=== PATIENT | male | born 1975 | race African-American/Black ===

== ENCOUNTER 2017-08-07 02:47 | Emergency (ER) | payer MEDICAID, OTHER ==
[~2017-08-07] VITALS: Ht 188 cm; Wt 104.5 kg
[2017-08-07] MEDS ORDERED: IBUPROFEN 600 MG TABLET PO ONE (03:00)
[2017-08-07] MEDS ORDERED: ALBU8.5H8 IH (03:13)
[2017-08-07] MEDS ORDERED: ALBUTEROL SULFATE 2.5 MG/0.5 ML NEB SOLUTION NEB ONE (03:39)
[2017-08-07 03:48] LABS: INFLUENZA TYPE A NEGATIVE FOR TYPE A (NEGATIVE); INFLUENZA TYPE B NEGATIVE FOR TYPE B (NEGATIVE)
[2017-08-07] MEDS ORDERED: 0.9% SODIUM CHLORIDE 5 ML NEB SOLUTION NEB ONE (03:49)
[2017-08-07 04:33] LABS: BASOPHILS # (AUTO) 0.02 K/uL (0.00-0.20); BASOPHILS % (AUTO) 0.3 % (0.0-2.0); EOSINOPHILS # (AUTO) 0.01 K/uL (0.00-0.70); EOSINOPHILS % (AUTO) 0.11 % (1.0-6.0); HEMATOCRIT 41.8 % (41-53); HEMOGLOBIN 14.1 g/dL (13.5-17.5); LYMPHOCYTES # (AUTO) 2.3 K/uL (1.0-4.8); LYMPHOCYTES % (AUTO) 29.1 % (22.0-44.0); MEAN CORPUSCULAR HEMOGLOBIN 32.8 pg (26.0-34.0); MEAN CORPUSCULAR HGB CONC 33.7 G/dL (31.0-37.0); MEAN CORPUSCULAR VOLUME 97 fL (80-100); MONOCYTES # (AUTO) 0.6 K/uL (0.1-1.0); MONOCYTES % (AUTO) 7.5 % (2.0-9.0); NEUTROPHILS # (AUTO) 4.9 K/uL (1.8-7.7); PLATELET COUNT (AUTO) 137 K/uL (150-450); RED CELL DISTRIBUTION WIDTH 13.2 % (11.5-14.5)
[2017-08-07 04:46] LABS: ALANINE AMINOTRANSFERASE 30 U/L (12-78); ALBUMIN 3.3 g/dL (3.4-5.0); ALKALINE PHOSPHATASE 63 U/L (46-116); ANION GAP 8 mmol/L (8-16); ASPARTATE AMINOTRANSFERASE 32 U/L (15-37); BILIRUBIN,TOTAL 0.4 mg/dL (0.1-1.0); CALCIUM, TOTAL 7.6 mg/dL (8.8-10.5); CARBON DIOXIDE 27 mmol/L (22-29); CHLORIDE 99 mmol/L (98-107); CREATININE 1.35 mg/dL (0.60-1.30); GLOMERULAR FILTR. RATE CALC > 60 mL/min (>60); GLUCOSE,RANDOM 129 mg/dL (70-110); SODIUM SERUM 134 mmol/L (136-145); UREA NITROGEN, BLOOD 10 mg/dL (7-18)
[2017-08-07 04:49] LABS: POTASSIUM 2.8 mmol/L (3.5-5.1)
[2017-08-07] MEDS ORDERED: POTASSIUM CHLORIDE 20 MEQ ER TABLET PO ONE (05:00)
[2017-08-07] MEDS ORDERED: SODIUM CHLORIDE 0.9% 1,000 ML IV ONE (05:15)
[2017-08-07 05:23] VITALS: BP 126/68
== END 2017-08-07 05:46 | disposition home or self-care (01) ==
LOC: EMS 02:52
DX: J11.1 Influenza due to unidentified influenza virus with other respiratory manifestations (principal); E87.6 Hypokalemia; J45.909 Unspecified asthma, uncomplicated; F17.210 Nicotine dependence, cigarettes, uncomplicated; Z88.0 Allergy status to penicillin
CPT/HCPCS: 36415; 71045; 80053; 85025; 87804; 94640; 96360; 99285; J7030; J7613

== ENCOUNTER 2018-09-06 13:57 | Emergency (ER) | payer MEDICAID ==
[~2018-09-06] VITALS: Ht 190.5 cm; Wt 111.4 kg
[~2018-09-06 13:57] MED LIST: ALBU8.5H8 IH
[2018-09-06 14:22] VITALS: BP 127/92
== END 2018-09-06 17:07 | disposition left against medical advice (07) ==
LOC: EMS 13:57
DX: R05 Cough (principal); R06.2 Wheezing; J45.909 Unspecified asthma, uncomplicated; F31.9 Bipolar disorder, unspecified; F20.9 Schizophrenia, unspecified; F17.210 Nicotine dependence, cigarettes, uncomplicated; Z76.0 Encounter for issue of repeat prescription; Z53.21 Procedure and treatment not carried out due to patient leaving prior to being seen by health care provider

== ENCOUNTER → 2018-09-19 | Emergency (ER) | payer SELFPAY ==
[~2018-09-19] VITALS: Ht 188 cm; Wt 110.5 kg
[~2018-09-19] MED LIST changes: +0.9% SODIUM CHLORIDE 5 ML NEB SOLUTION NEB ONE; +ALBUTEROL SULFATE 5 MG/ML 20 ML NEB SOLN [BULK] NEB ONE; +HYDR-4031 PO; +IPRATROPIUM BROMIDE 0.5 MG/2.5 ML NEB SOLUTION NEB ONE; +LAMO25 PO; +OLAN10TA3 PO; +PredniSONE 20 MG TABLET PO ONE
[2018-09-19 06:48] VITALS: BP 138/76
== END | disposition home or self-care (01) ==
LOC: EMS 05:40
DX: J45.901 Unspecified asthma with (acute) exacerbation (principal); F31.9 Bipolar disorder, unspecified; F20.9 Schizophrenia, unspecified; F17.210 Nicotine dependence, cigarettes, uncomplicated; Z88.0 Allergy status to penicillin
CPT/HCPCS: 94644; 99285; 99406; J7512

== ENCOUNTER 2019-03-09 08:09 | Emergency (ER) | payer MEDICAID ==
[~2019-03-09] VITALS: Ht 190.5 cm; Wt 92.3 kg
[~2019-03-09 08:09] MED LIST changes: -0.9% SODIUM CHLORIDE 5 ML NEB SOLUTION NEB ONE; -ALBUTEROL SULFATE 5 MG/ML 20 ML NEB SOLN [BULK] NEB ONE; -IPRATROPIUM BROMIDE 0.5 MG/2.5 ML NEB SOLUTION NEB ONE; -PredniSONE 20 MG TABLET PO ONE
[2019-03-09 08:12] VITALS: BP 125/90
[2019-03-09] MEDS ORDERED: ALBUTEROL SULFATE HFA 90 MCG/PUFF 8 GM INHALER IH ONE (08:45)
== END 2019-03-09 09:23 | disposition home or self-care (01) ==
LOC: EMS 08:09
DX: J45.909 Unspecified asthma, uncomplicated (principal); F31.9 Bipolar disorder, unspecified; F19.10 Other psychoactive substance abuse, uncomplicated; F17.210 Nicotine dependence, cigarettes, uncomplicated; F20.9 Schizophrenia, unspecified; F19.90 Other psychoactive substance use, unspecified, uncomplicated; Z88.0 Allergy status to penicillin
CPT/HCPCS: 94640; 99406; J3535

== ENCOUNTER 2019-06-03 16:05 | Emergency (ER) | payer MEDICAID ==
[~2019-06-03] VITALS: Ht 183.5 cm; Wt 85.0 kg
[2019-06-03 17:10] VITALS: BP 148/88
[2019-06-03] MEDS ORDERED: PredniSONE 20 MG TABLET PO ONE (17:15)
[2019-06-03] MEDS ORDERED: ALBUTEROL SULFATE HFA 90 MCG/PUFF 8 GM INHALER IH ONE (17:15)
== END 2019-06-03 18:12 | disposition home or self-care (01) ==
LOC: EMS 16:06
DX: J45.909 Unspecified asthma, uncomplicated (principal); F31.9 Bipolar disorder, unspecified; F20.9 Schizophrenia, unspecified; F17.210 Nicotine dependence, cigarettes, uncomplicated; F19.90 Other psychoactive substance use, unspecified, uncomplicated; Z88.0 Allergy status to penicillin
CPT/HCPCS: 94640; 99283; 99406; J7512; J3535

== ENCOUNTER 2019-06-26 12:28 | Inpatient (IN) | payer MEDICAID ==
[~2019-06-26] VITALS: Ht 188 cm; Wt 83.5 kg
[~2019-06-26 12:28] MED LIST changes: -LAMO25 PO; +LAMO25TA25 PO
[2019-06-26 12:56] LABS: BASOPHILS % (AUTO) 0.4 % (0.0-2.0); EOSINOPHILS % (AUTO) 6.8 % (1.0-6.0); HEMATOCRIT 42.9 % (41-53); HEMOGLOBIN 14.7 g/dL (13.5-17.5); LYMPHOCYTES # (AUTO) 1.6 K/uL (1.0-4.8); LYMPHOCYTES % (AUTO) 25.4 % (22.0-44.0); MEAN CORPUSCULAR HEMOGLOBIN 33.7 pg (26.0-34.0); MEAN CORPUSCULAR HGB CONC 34.4 G/dL (31.0-37.0); MEAN CORPUSCULAR VOLUME 98 fL (80-100); MONOCYTES # (AUTO) 0.5 K/uL (0.1-1.0); MONOCYTES % (AUTO) 7.8 % (2.0-9.0); NEUTROPHILS # (AUTO) 3.8 K/uL (1.8-7.7); NEUTROPHILS % (AUTO) 59.6 % (40.0-70.0); PLATELET COUNT (AUTO) 241 K/uL (150-450); RED BLOOD CELL COUNT(AUTO) 4.38 MIL/uL (4.50-5.90); RED CELL DISTRIBUTION WIDTH 12.6 % (11.5-14.5)
[2019-06-26 13:06] LABS: ANION GAP 6 mmol/L (8-16); CALCIUM, TOTAL 8.2 mg/dL (8.8-10.5); CARBON DIOXIDE 29 mmol/L (22-29); CHLORIDE 103 mmol/L (98-107); CREATININE 1.31 mg/dL (0.60-1.30); GLOMERULAR FILTR. RATE CALC > 60 mL/min (>60); GLUCOSE,RANDOM 130 mg/dL (70-110); POTASSIUM 3.4 mmol/L (3.5-5.1); SODIUM SERUM 138 mmol/L (136-145); UREA NITROGEN, BLOOD 12 mg/dL (7-18)
[2019-06-26] MEDS ORDERED: OLANZapine 5 MG TABLET PO ONE (13:15)
[2019-06-26] MEDS ORDERED: LamoTRIgine 25 MG TABLET PO ONE (13:15)
[2019-06-26 13:20] LABS: ALANINE AMINOTRANSFERASE 22 U/L (12-78); ALBUMIN 3.4 g/dL (3.4-5.0); ALKALINE PHOSPHATASE 92 U/L (46-116); ASPARTATE AMINOTRANSFERASE 22 U/L (15-37); BILIRUBIN,TOTAL 0.4 mg/dL (0.1-1.0); TOTAL PROTEIN, SERUM 6.7 g/dL (6.4-8.2)
[2019-06-26 15:30] LABS: AMPHET/METH SCREEN,URINE POSITIVE (NEGATIVE); BARBITURATE SCREEN, URINE NEGATIVE (NEGATIVE); BENZODIAZEPINES SCREEN,URINE NEGATIVE (NEGATIVE); CANNABINOID SCREEN,URINE POSITIVE (NEGATIVE); COCAINE SCREEN,URINE NEGATIVE (NEGATIVE); METHADONE SCREEN, URINE NEGATIVE (NEGATIVE); OPIATE SCREEN,URINE NEGATIVE (NEGATIVE); PHENCYCLIDINE SCREEN,URINE NEGATIVE (NEGATIVE)
[2019-06-26] MEDS ORDERED: HALOPERIDOL 5 MG TABLET PO PRN (20:00)
[2019-06-26] MEDS ORDERED: ZOLPIDEM TARTRATE 10 MG TABLET PO PRN (20:00)
[2019-06-26] MEDS ORDERED: LORazepam 2 MG TABLET PO PRN (20:00)
[2019-06-27] MEDS ORDERED: ALBUTEROL SULFATE HFA 90 MCG/PUFF 8 GM INHALER IH PRN (06:30)
[2019-06-27] MEDS ORDERED: MAGNESIUM HYDROXIDE SUSPENSION 30 ML UDCUP PO PRN (06:30)
[2019-06-27] MEDS ORDERED: CloNIDine HCL 0.1 MG TABLET PO PRN (06:30)
[2019-06-27] MEDS ORDERED: IBUPROFEN 400 MG TABLET PO PRN (06:30)
[2019-06-27] MEDS ORDERED: ACETAMINOPHEN 325 MG TABLET PO PRN (06:30)
[2019-06-27] MEDS ORDERED: NICOTINE 14 MG/24 HOUR PATCH TD PRN (06:30)
[2019-06-27] MEDS ORDERED: ONDANSETRON HCL 4 MG TABLET PO PRN (06:30)
[2019-06-27] MEDS ORDERED: PETROLATUM,WHITE 28 GM JELLY TP PRN (06:30)
[2019-06-27] MEDS ORDERED: GuaiFENesin/D-METHORPHAN [SUGAR-FREE] 200-20MG/10 ML SYRUP UDCUP PO PRN (06:30)
[2019-06-27] MEDS ORDERED: LOPERAMIDE HCL 2 MG CAPSULE PO PRN (06:30)
[2019-06-27] MEDS ORDERED: MAG HYDROX/AL HYDROX/SIMETH ES 30 ML SUSPENSION UDCUP PO PRN (06:30)
[2019-06-27] MEDS ORDERED: DOCUSATE SODIUM 100 MG CAPSULE PO PRN (06:30)
[2019-06-27 09:25] VITALS: BP 132/76
[2019-06-27] MEDS: OLANZapine 5 MG TABLET PO SCH ×2 (10:36→16:45)
[2019-06-27] MEDS ORDERED: PNEUMOCOCCAL VACCINE POLYVALENT 0.5 ML VIAL [PPSV23] IM ONE (11:00)
[2019-06-27 16:08] VITALS: BP 104/53
[2019-06-28 06:30] VITALS: BP 114/68
[2019-06-28 08:08] VITALS: BP 118/73
[2019-06-28] MEDS: POTASSIUM CHLORIDE 20 MEQ ER TABLET PO SCH (08:52)
[2019-06-28] MEDS: OLANZapine 5 MG TABLET PO SCH ×2 (08:52→16:49)
[2019-06-28 17:12] VITALS: BP 112/77
[2019-06-29 06:36] VITALS: BP 100/62
[2019-06-29 08:04] VITALS: BP 100/40
[2019-06-29 08:10] VITALS: BP 112/61
[2019-06-29] MEDS: OLANZapine 5 MG TABLET PO SCH (08:15)
[2019-06-29] MEDS: POTASSIUM CHLORIDE 20 MEQ ER TABLET PO SCH (08:15)
[2019-06-29] MEDS ORDERED: KDUR20 PO (10:05)
[2019-06-29] MEDS ORDERED: OLAN5TAB2 PO (10:05)
== END 2019-06-29 13:15 | disposition home or self-care (01) | DRG 750 ==
LOC: EMS 12:30 → B3A 06-27 06:37
PROVIDERS: ADMIT Psychiatry & Neurology Psychiatry; ATTEND Psychiatry & Neurology Psychiatry
DX: F25.9 Schizoaffective disorder, unspecified (principal); R45.851 Suicidal ideations; J45.909 Unspecified asthma, uncomplicated; F17.210 Nicotine dependence, cigarettes, uncomplicated; E87.6 Hypokalemia; Z88.0 Allergy status to penicillin
CPT/HCPCS: 84132; G0480

== ENCOUNTER 2019-10-06 16:55 | Emergency (ER) | payer MEDICAID ==
[~2019-10-06] VITALS: Ht 188 cm; Wt 107.7 kg
[~2019-10-06 16:55] MED LIST changes: -ALBU8.5H8 IH; -HYDR-4031 PO; +KDUR20 PO; -OLAN10TA3 PO; +OLAN5TAB2 PO
[2019-10-06] MEDS ORDERED: HYDR-4031 PO (17:03)
[2019-10-06 19:00] VITALS: BP 129/77
== END 2019-10-06 21:48 | disposition home or self-care (01) ==
LOC: EMS 16:55
DX: R30.0 Dysuria (principal); R39.15 Urgency of urination; F17.210 Nicotine dependence, cigarettes, uncomplicated; F20.9 Schizophrenia, unspecified; F15.10 Other stimulant abuse, uncomplicated; F12.10 Cannabis abuse, uncomplicated; J45.909 Unspecified asthma, uncomplicated
CPT/HCPCS: 87491; 87591

== ENCOUNTER 2020-09-03 14:57 | Emergency (ER) | payer MEDICAID ==
[~2020-09-03] VITALS: Ht 182.9 cm; Wt 81.8 kg
[~2020-09-03 14:57] MED LIST changes: +HYDR-4031 PO; -KDUR20 PO
[2020-09-03] MEDS ORDERED: CefTRIAXone 1 GM/DEXTROSE 50 ML IV ONE (17:45)
[2020-09-03 17:47] LABS: BASOPHILS % (AUTO) 0.2 % (0.0-2.0); HEMATOCRIT 42.8 % (41-53); HEMOGLOBIN 14.2 g/dL (13.5-17.5); LYMPHOCYTES # (AUTO) 1.9 K/uL (1.0-4.8); LYMPHOCYTES % (AUTO) 14.8 % (22.0-44.0); MEAN CORPUSCULAR HEMOGLOBIN 33.5 pg (26.0-34.0); MEAN CORPUSCULAR HGB CONC 33.2 G/dL (31.0-37.0); MEAN CORPUSCULAR VOLUME 101 fL (80-100); MONOCYTES # (AUTO) 0.9 K/uL (0.1-1.0); MONOCYTES % (AUTO) 7.5 % (2.0-9.0); NEUTROPHILS # (AUTO) 9.5 K/uL (1.8-7.7); NEUTROPHILS % (AUTO) 75.5 % (40.0-70.0); PLATELET COUNT (AUTO) 283 K/uL (150-450); RED BLOOD CELL COUNT(AUTO) 4.25 MIL/uL (4.50-5.90); RED CELL DISTRIBUTION WIDTH 12.9 % (11.5-14.5)
[2020-09-03 18:09] LABS: ANION GAP 10 mmol/L (8-16); CALCIUM, TOTAL 8.9 mg/dL (8.8-10.5); CARBON DIOXIDE 27 mmol/L (22-29); CHLORIDE 101 mmol/L (98-107); CREATININE 1.12 mg/dL (0.60-1.30); GLOMERULAR FILTR. RATE CALC > 60 mL/min (>60); GLUCOSE,RANDOM 73 mg/dL (70-110); POTASSIUM 3.7 mmol/L (3.5-5.1); SODIUM SERUM 138 mmol/L (136-145); UREA NITROGEN, BLOOD 9 mg/dL (7-18)
[2020-09-03 18:11] LABS: ALANINE AMINOTRANSFERASE 19 U/L (12-78); ALBUMIN 3.2 g/dL (3.4-5.0); ALKALINE PHOSPHATASE 89 U/L (46-116); ASPARTATE AMINOTRANSFERASE 18 U/L (15-37); BILIRUBIN,TOTAL 0.3 mg/dL (0.1-1.0); TOTAL PROTEIN, SERUM 7.7 g/dL (6.4-8.2)
[2020-09-03] MEDS ORDERED: SODIUM CHLORIDE 0.9% 100 ML ONE (18:16)
[2020-09-03] MEDS ORDERED: IOVERSOL 350 MG/ML 100 ML VIAL ONE (18:16)
[2020-09-03 20:15] VITALS: BP 131/76
[2020-09-03] MEDS ORDERED: VANCOMYCIN HCL 1.5 GM in DEXTROSE 5%-WATER 250 ML IV ONE (20:15)
[2020-09-03] MEDS ORDERED: ACETAMINOPHEN 325 MG TABLET PO PRN ×2 (20:30→20:45)
[2020-09-03] MEDS ORDERED: ONDANSETRON HCL 4 MG/2 ML VIAL IVP PRN ×2 (20:30→20:45)
[2020-09-03] MEDS ORDERED: 0.9% SODIUM CHLORIDE 10 ML SYRINGE IVP PRN (20:30)
[2020-09-03] MEDS ORDERED: MORPHINE SULFATE 2 MG/ML SYRINGE IVP PRN (20:45)
[2020-09-03] MEDS ORDERED: OxyCODONE HCL/ACETAMINOPHEN 5-325 MG TABLET PO PRN (20:45)
[2020-09-03] MEDS ORDERED: SULFAMETHOX/TRIMETH DS 800-160 MG/TABLET PO ONE (20:45)
[2020-09-03] MEDS ORDERED: NICOTINE 21 MG/24 HOUR PATCH TD ONE (20:45)
[2020-09-03] MEDS ORDERED: SODIUM CHLORIDE 0.9% 1,000 ML IV ONE (20:45)
[2020-09-03] MEDS ORDERED: OLANZapine 5 MG TABLET PO SCH (21:00)
[2020-09-03] MEDS ORDERED: DOCUSATE SODIUM 100 MG CAPSULE PO SCH (21:00)
[2020-09-03 21:11] LABS: COVID AG,FIA SOURCE NASOPHARYNGEAL
[2020-09-04] MEDS ORDERED: FAMOTIDINE 20 MG TABLET PO SCH (09:00)
== END 2020-09-03 20:50 | disposition home or self-care (01) ==
LOC: EMS 15:35
DX: L02.415 Cutaneous abscess of right lower limb (principal); F12.90 Cannabis use, unspecified, uncomplicated; F15.90 Other stimulant use, unspecified, uncomplicated; F31.9 Bipolar disorder, unspecified; Z88.0 Allergy status to penicillin; Z20.822 Contact with and (suspected) exposure to COVID-19
CPT/HCPCS: 36415; 73701; 80053; 85025; 87040; 87077; 87205; 87426; 96365; 99285; C9803; J0696; J7050; Q9967; J3370; J7060